=== PATIENT | female | born 1940 | race Caucasian/White ===

== ENCOUNTER → 2023-06-22 08:58 | Outpatient (REF) | payer OTHER, SELFPAY | LOC: HWWDC 08:58 | PROVIDERS: ATTENDING PHYSICIAN Family Medicine | DX: Z12.31 Encounter for screening mammogram for malignant neoplasm of breast (principal) | CPT/HCPCS: 77063; 77067 ==

== ENCOUNTER 2023-07-31 22:05 | Emergency (ER) | payer OTHER, SELFPAY ==
[2023-07-31 22:15] VITALS: BP 174/71
[2023-07-31 22:29] LABS: % Basophils 0.6 % (0-2); % Eosinophils 1.9 % (0-6); % Immature Granulocytes 0.5 % (0-0.5); % Lymphocytes 16.6 % (20.5-51.1); % Monocytes 7.7 % (1.7-9.3); % Neutrophils 72.7 % (42.2-75.2); Absolute Basophils 0.1 10^3/uL (0-0.2); Absolute Eosinophils 0.2 10^3/uL (0-0.7); Absolute Immature Granulocytes 0.1 10^3/uL (0-0.05); Absolute Lymphocytes 1.8 10^3/uL (1.2-3.4); Absolute Monocytes 0.8 10^3/uL (0.1-0.6); Absolute Neutrophils 7.7 10^3/uL (1.4-6.5); Hematocrit 33.1 % (37.0-47.0); Hemoglobin 11.1 g/dL (12.0-16.0); Mean Corp Hgb Conc. 33.5 g/dL (33.0-37.0); Mean Corpuscular Hgb 28.8 pg (27.0-31.0); Mean Platelet Volume 9.8 fL (7.4-10.4); Nucleated Red Blood Cells % 0 %; Platelet Count 258 10^3/uL (130-400); Red Blood Cell Count 3.85 10^6/uL (4.20-5.40); Red Cell Dist. Width 14.3 % (11.5-14.5); White Blood Cell Count 10.5 10^3/uL (4.8-10.8)
[2023-07-31 22:46] LABS: ALT (SGPT) 28 U/L (0-35); AST (SGOT) 27 U/L (14-36); Albumin 4.6 g/dl (3.5-5.0); Alkaline Phosphatase 88 U/L (38-126); Blood Urea Nitrogen 32 mg/dl (7-17); Calcium 9.4 mg/dl (8.4-10.2); Carbon Dioxide 22 mmol/L (22-30); Chloride 109 mmol/L (98-107); Glucose 132 mg/dl (70-99); Potassium 4.5 mmol/L (3.5-5.1); Sodium 138 mmol/L (135-145); Total Bilirubin 0.3 mg/dl (0.2-1.3); Total Protein 7.3 g/dl (6.3-8.2)
[2023-07-31 22:53] LABS: Troponin I < 0.012 ng/ml
[2023-08-01 00:33] VITALS: BP 150/64
[2023-08-01 00:35] VITALS: BP 150/64
[2023-08-01 01:12] LABS: Urine Albumin Negative (Neg - Trace); Urine Bilirubin Negative (Negative); Urine Character Slightly Cloudy (Clear); Urine Color Yellow; Urine Glucose Negative (Negative); Urine Ketone Negative (Negative); Urine Leukocyte 2+ (Negative); Urine Nitrite Negative (Negative); Urine Occult Blood Trace (Negative); Urine Urobilinogen Negative (Neg - 1+)
[2023-08-01 01:36] LABS: Urine Mucus Many; Urine Squamous Cell >30 /LPF (Few); Urine Urothelial Cell >30 /LPF (FEW)
[2023-08-01 01:37] LABS: Urine Bacteria Many (Negative); Urine White Cell >100 /HPF (0-5)
[2023-08-01 01:39] VITALS: BP 172/68
[2023-08-01] MEDS: NSS 1000 IV (02:12)
--- NOTE | 2023-08-01 02:56 | ED.GENMED ---
History of Present Illness
General
Chief Complaint: Fainting Sensation
Source: patient
Exam Limitations: none
Time Seen by Provider: 08/01/23 01:31
Travel History
Have you had any contact with someone who has COVID-19?: No
Do you have any symptoms of coronavirus? Fever > 100 degrees, chills, cough, shortness of breath, sore throat, loss of taste or smell, muscle aches, or headache?: No
History of Present Illness
History of Present Illness:
83-year-old female onset of lightheadedness standing up from a chair. Had some minor chest pressure at that time. Symptoms have resolved. Ongoing left flank pain for days. No fever or chills nausea or vomiting. Currently feels well.
Past History
Past History
ED Past Medical History: HTN, Hypercholesterolemia, NIDDM and Other (UTI, Dizziness, diverticulitis)
ED Past Surgical History: Cardiac (Cardiac catheterization 06/20/2018), Cholecystectomy and Other (Vascular)
Social History
Tobacco: Non-smoker
Alcohol: None
Drug: None
Personal:
Living: alone
Employment: Retired
Family History
Family History: Diabetes and Cancer; Negative Hypertension, Early CAD, CAD or Asthma
Review of Systems
Review of Systems
All Other Systems: Not applicable
Constitutional: Denies fever
Respiratory: Reports no symptoms
ABD/GI: Denies abdominal pain
Phy Exam
Physical Exam
Physical Exam:
GENERAL: Alert and oriented in no apparent distress
EYE: Orbits normal.
NECK: Supple
ENT: Pharynx without erythema
CARDIAC: Regular rate and rhythm without any obvious murmurs.
LUNGS: Clear breath sounds,normal
ABDOMEN: Soft, without focal tenderness or distention. No CVA tenderness
NEUROLOGICAL: Alert and oriented , grossly non-focal
SKIN: Warm and dry, no rash or lesion, no discoloration, skin intact.
MUSCULOSKELETAL: No edema,no deformity.Good color
PSYCH: Normal and appropriate interaction.
Course
Orders/Labs/Results
Orders:
Orders
07/31/23 22:15
Electrocardiogram (*1) Urgent
Reason for Study: Chest Pain
Cardiac Monitoring- Treatment ONCE
EKG- Treatment ONCE
IV Insert/Care/Rem.- Treatment PRN
O2 Therapy [RESP] Urgent
Titrate/Wean O2 to maintain O2 sat greater than (%): 90
Special Instructions: Maintain sats >/=90%
Pulse Ox/spot Check [RESP] Urgent
Quantity: 1
Special Instructions: ON ROOM AIR
07/31/23 22:24
Complete Blood Count/With Diff Urgent
Comprehensive Metabolic Panel Urgent
Troponin I Urgent
08/01/23 00:41
Urinalysis Reflex To Culture Urgent
Date Specimen was Collected: 08/01/23
Time Specimen was Collected: 00:35
Urine Microscopic Reflex Cult Urgent
Urine Culture Urgent
MISSY Source: U
Specimen Description:
Date Specimen was Collected: 08/01/23
Time Specimen was Collected: 00:35
08/01/23 01:39
IV Insert/Care/Rem.- Treatment PRN
0.9% Sodium Chloride 1000 ml [Nss] 1,000 ml IV BOLUS
08/01/23 01:40
CT Abd/pel Without Iv Or Oral Urgent
Comment:
Reason For Exam: Left flank pain
08/01/23 03:07
CefTRIAXone [Rocephin] 1,000 mg IV NOW STA
Abnormal Lab Results
07/31/23 08/01/23
22:24 00:41
RBC 3.85 L 10^6/uL
(4.20-5.40)
Hgb 11.1 L g/dL
(12.0-16.0)
Hct 33.1 L %
(37.0-47.0)
Abs Immat Gran (auto) 0.1 H 10^3/uL
(0-0.05)
Absolute Neuts (auto) 7.7 H 10^3/uL
(1.4-6.5)
Absolute Monos (auto) 0.8 H 10^3/uL
(0.1-0.6)
Lymphocytes % 16.6 L %
(20.5-51.1)
Chloride 109 H mmol/L
(98-107)
BUN 32 H mg/dl
(7-17)
Creatinine 1.3 H mg/dL
(0.6-1.0)
Glucose 132 H mg/dl
(70-99)
Ur Occult Blood Reflex Trace A
(Negative)
Leukocyte Esterase Rfl 2+ A
(Negative)
Urine WBC (Reflex) >100 A /HPF
(0-5)
Urine Bacteria (Reflex) Many A
(Negative)
07/31/23 22:24
07/31/23 22:24
Vital Signs
Initial and Last Documented VS:
Initial Vital Signs
Temp Pulse Resp BP Pulse Ox
98.4 F 72 19 174/71 95
07/31/23 22:15 07/31/23 22:15 07/31/23 22:15 07/31/23 22:15 07/31/23 22:15
Last Documented Vital Signs
Temp Pulse Resp BP Pulse Ox
98.4 F 61 13 172/68 96
07/31/23 22:15 08/01/23 01:45 08/01/23 01:45 08/01/23 01:39 08/01/23 02:02
*Radiology
Radiology exam reviewed: radiology read reviewed (No acute findings. Renal cysts degenerative changes in the back. No hydronephrosis or obstructing stone)
*Pulse Oximetry
Patient hypoxic: no
*EKG
Interpreted by ED Provider?: Yes
Interpretation: normal
Comparison EKG: no changes
Heart Rate: 65
Rate: normal
Rhythm: sinus
[place]: normal axis
Interval: normal interval
QRS Pattern: normal QRS
Ischemia: no ischemia
*[employer] Interpretation
Rate: normal
Interpretation: normal
Heart Rate: 66
Rhythm: sinus
*Critical Care Note
Total Time (30-74mins, 75-104mins- exclusive of procedures): Not Applicable
Update Note
Update Note:
Patient is clinically remained stable. Syncope by history was very orthostatic in nature. No further episodes no arrhythmias. Possible UTI based on urine although admittedly significant squamous cells. Will cover for UTI to follow-up
ED Attending Note
-
Portions of this chart may have been created with voice recognition software.� Occasional wrong word or��sound alike� substitutions may have occurred due to the inherent limitations of voice recognition software.
Discharge Plan
Departure
Patient Disposition: Home (Routine Discharge)
Date of Disposition: 08/01/23
Time of Disposition: 03:08
Patient with high blood pressure during this ER visit?: Yes
Discharge Problem:
Orthostatic near syncope, Possible UTI, Ongoing back pain, Mild renal insufficiency/dehydration
Instructions: Urinary Tract Infection, Adult (DC), Near Fainting (DC), Back Pain, BLOOD PRESSURE
Prescriptions:
New
cefdinir 300 mg capsule
300 mg PO BID 7 Days Qty: 14 0RF
No Action
carvedilol 6.25 MG tablet
6.25 mg PO BID
amlodipine 5 MG tablet
5 mg PO DAILY
metformin 1,000 MG tablet
1,000 mg PO DAILY
Multivitamin Women 50 Plus 1 EACH tablet
1 ea PO DAILY
pantoprazole 40 MG tablet,delayed release (DR/EC)
20 mg PO DAILY
simvastatin 20 MG tablet
20 mg PO MOWEFR
Rx Instructions:
IN THE EVENING
cholecalciferol (vitamin D3) 1,000 UNITS tablet
1,000 units PO DAILY
losartan 100 mg Tablet
100 mg PO DAILY Qty: 0 0RF
Rx Instructions:
hold systolic blood pressure <130
aspirin 325 mg tablet
81 mg PO DAILY
Referrals:
Emmanuel Hall MD [Family Provider] - Follow up in 2-3 days
Interventions
Interventions:
*Risk Screen - Suicide Last Done: 07/31/23 22:15
*General Assessment Last Done: 07/31/23 22:15
*Neglect/Abuse Screening Last Done: 07/31/23 22:15
ED- Fall Risk Assessment Last Done: 08/01/23 01:38
*ED COVID-19 Vaccine History Last Done: 07/31/23 22:15
ED- Cardiac Assessment Last Done: 08/01/23 01:00
ED- Neurological Assessment Last Done: 08/01/23 01:00
Discharge Date and Time
Print Language: BULGARIAN
[2023-08-01] MEDS: ROCEPHIN 1000 MG IV (03:20)
== END 2023-08-01 04:05 | disposition home or self-care (01) ==
LOC: EMR 22:05
PROVIDERS: Student in an Organized Health Care Education/Training Program; EMERGENCY PHYSICIAN Emergency Medicine; FAMILY PHYSICIAN Family Medicine
DX: R55 Syncope and collapse (principal); R10.9 Unspecified abdominal pain; M54.9 Dorsalgia, unspecified; E86.0 Dehydration; N28.9 Disorder of kidney and ureter, unspecified; I10 Essential (primary) hypertension; E11.9 Type 2 diabetes mellitus without complications; E78.00 Pure hypercholesterolemia, unspecified; K57.92 Diverticulitis of intestine, part unspecified, without perforation or abscess without bleeding; Z87.440 Personal history of urinary (tract) infections; Z79.82 Long term (current) use of aspirin; Z90.49 Acquired absence of other specified parts of digestive tract; Z88.6 Allergy status to analgesic agent; Z88.5 Allergy status to narcotic agent; Z88.8 Allergy status to other drugs, medicaments and biological substances
CPT/HCPCS: 99285; 96374; 96361 ×2; 74176; 80053; 81003; 81015; 84484; 85025; 87086; 93005

== ENCOUNTER 2023-12-29 07:56 | Emergency (ER) | payer OTHER, SELFPAY ==
[2023-12-29 07:58] VITALS: BP 187/78
--- NOTE | 2023-12-29 08:50 | ED.GENMED ---
History of Present Illness
General
Chief Complaint: Abdominal Symptoms
Time Seen by Provider: 12/29/23 08:29
History of Present Illness
History of Present Illness:
83-year-old female presents to the emergency department for evaluation of intermittent abdominal distention for the past 3 to 4 days associated with lower abdominal pain this morning. She had a normal bowel movement this morning. No obvious
provoking or palliating factors. Denies any fever, chills, sweats. Has not had much appetite but denies any postprandial worsening of the pain. Prior abdominal surgeries include cholecystectomy
Past History
Past History
ED Past Medical History: HTN, Hypercholesterolemia, NIDDM and Other (UTI, Dizziness, diverticulitis)
ED Past Surgical History: Cardiac (Cardiac catheterization 06/20/2018), Cholecystectomy and Other (Vascular)
Social History
Tobacco: Non-smoker
Alcohol: None
Drug: None
Personal:
Living: alone
Employment: Retired
Family History
Family History: Diabetes and Cancer; Negative Hypertension, Early CAD, CAD or Asthma
Review of Systems
Review of Systems
Allergies reviewed?: Yes
All Other Systems: ROS reviewed and negative except as documented in HPI and ROS
Phy Exam
Physical Exam
Physical Exam:
GEN: Well appearing, NAD, WDWN
HEENT: Oral mucosa moist, no scleral icterus
Cardiac: Regular rate
Lung: No respiratory distress, no tachypnea
Abdomen: Soft, nonTender, Protuberant but not distended
MSK: No gross deformity or injuries
Skin: Good color, no pallor or jaundice, no rashes
Neuro: AO x3, moves all extremities freely
Psych: Calm, cooperative
Course
Orders/Labs/Results
Orders:
Orders
12/29/23 08:49
CT Abd/Pel (IV only)-DH only Urgent
Comment:
Reason For Exam: upper abd pain/distention
12/29/23 09:17
Complete Blood Count/With Diff Urgent
Comprehensive Metabolic Panel Urgent
Lipase Urgent
Urinalysis Reflex To Culture Urgent
Date Specimen was Collected: 12/29/23
Time Specimen was Collected: 09:05
Urine Microscopic Reflex Cult Urgent
Urine Culture Urgent
MISSY Source: U
Specimen Description:
Date Specimen was Collected: 12/29/23
Time Specimen was Collected: 09:05
12/29/23 11:14
Fosfomycin [Monurol] 3 gm PO ONCE ONE
Abnormal Lab Results
12/29/23
09:17
RBC 3.81 L 10^6/uL
(4.20-5.40)
Hgb 11.2 L g/dL
(12.0-16.0)
Hct 33.3 L %
(37.0-47.0)
Carbon Dioxide 19 L mmol/L
(22-30)
BUN 25 H mg/dl
(7-17)
Creatinine 1.2 H mg/dL
(0.6-1.0)
Glucose 126 H mg/dl
(70-99)
Leukocyte Esterase Rfl 2+ A
(Negative)
Urine WBC (Reflex) 21-25 A /HPF
(0-5)
Urine Bacteria (Reflex) Few A
(Negative)
12/29/23 09:17
12/29/23 09:17
Vital Signs
Initial and Last Documented VS:
Initial Vital Signs
Temp Pulse Resp BP Pulse Ox
97.8 F 77 16 187/78 95
12/29/23 07:58 12/29/23 07:58 12/29/23 07:58 12/29/23 07:58 12/29/23 07:58
Last Documented Vital Signs
Temp Pulse Resp BP Pulse Ox
97.8 F 66 18 160/69 96
12/29/23 07:58 12/29/23 11:36 12/29/23 11:36 12/29/23 11:36 12/29/23 11:36
MDM/Problems Addressed
MDM/Problems Addressed:
Imaging is without acute pathology to suggest a source for symptoms. She does have some degree of pyuria and we will treat with a single dose of fosfomycin pending urine culture. Labs are otherwise reassuring. Patient was notified of the abnormal
appearing renal cyst and pancreatic cyst, further imaging may be needed to diagnose these but this is not clinically relevant today
*Critical Care Note
Total Time (30-74mins, 75-104mins- exclusive of procedures): Not Applicable
ED Attending Note
-
Portions of this chart may have been created with voice recognition software.� Occasional wrong word or��sound alike� substitutions may have occurred due to the inherent limitations of voice recognition software.
Discharge Plan
Departure
Patient Disposition: Home (Routine Discharge)
Date of Disposition: 12/29/23
Time of Disposition: 11:15
Patient with high blood pressure during this ER visit?: No
Discharge Problem:
Abdominal pain
Instructions: Abdominal Pain
Prescriptions:
No Action
carvedilol 6.25 MG tablet
6.25 mg PO BID
amlodipine 5 MG tablet
5 mg PO DAILY
metformin 1,000 MG tablet
1,000 mg PO DAILY
Multivitamin Women 50 Plus 1 EACH tablet
1 ea PO DAILY
pantoprazole 40 MG tablet,delayed release (DR/EC)
20 mg PO DAILY
simvastatin 20 MG tablet
20 mg PO MOWEFR
Rx Instructions:
IN THE EVENING
cholecalciferol (vitamin D3) 1,000 UNITS tablet
1,000 units PO DAILY
losartan 100 mg Tablet
100 mg PO DAILY Qty: 0 0RF
Rx Instructions:
hold systolic blood pressure <130
aspirin 325 mg tablet
81 mg PO DAILY
cefdinir 300 mg capsule
300 mg PO BID 7 Days Qty: 14 0RF
Referrals:
Emmanuel Hall MD [Family Provider] -
Activity Restrictions/Additional Instructions:
The cause of your abdominal pain is not clear. Treated you with a dose of antibiotic that should clear up the urinary tract infection if this was the ultimate cause. Incidentally were found to have cysts on your kidneys as well as a cyst on your
pancreas that should be further evaluated with either ultrasound or MRI. 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 None of these are likely to be causing
your abdominal symptoms today
Interventions
Interventions:
*Risk Screen - Suicide Last Done: 12/29/23 11:35
*General Assessment Last Done: 12/29/23 11:35
*Neglect/Abuse Screening Last Done: 12/29/23 11:35
*Nursing Disposition Last Done: 12/29/23 11:35
[id number] Assessment Last Done: 12/29/23 12:01
Discharge Date and Time
Discharge Date/Time: 12/29/23 12:08
Print Language: SLOVENIAN
[2023-12-29 09:27] LABS: % Basophils 0.8 % (0-2); % Immature Granulocytes 0.4 % (0-0.5); % Lymphocytes 20.8 % (20.5-51.1); % Monocytes 7.4 % (1.7-9.3); % Neutrophils 68.6 % (42.2-75.2); Absolute Basophils 0.1 10^3/uL (0-0.2); Absolute Eosinophils 0.2 10^3/uL (0-0.7); Absolute Lymphocytes 1.7 10^3/uL (1.2-3.4); Absolute Monocytes 0.6 10^3/uL (0.1-0.6); Absolute Neutrophils 5.7 10^3/uL (1.4-6.5); Hematocrit 33.3 % (37.0-47.0); Hemoglobin 11.2 g/dL (12.0-16.0); Mean Corp Hgb Conc. 33.6 g/dL (33.0-37.0); Mean Corpuscular Hgb 29.4 pg (27.0-31.0); Mean Corpuscular Volume 87.4 fL (81.0-99.0); Mean Platelet Volume 9.8 fL (7.4-10.4); Nucleated Red Blood Cells % 0 %; Platelet Count 253 10^3/uL (130-400); Red Blood Cell Count 3.81 10^6/uL (4.20-5.40); Red Cell Dist. Width 13.9 % (11.5-14.5); White Blood Cell Count 8.4 10^3/uL (4.8-10.8)
[2023-12-29 09:28] LABS: Urine Albumin Negative (Neg - Trace); Urine Bilirubin Negative (Negative); Urine Character Clear (Clear); Urine Color Yellow; Urine Glucose Negative (Negative); Urine Ketone Negative (Negative); Urine Leukocyte 2+ (Negative); Urine Nitrite Negative (Negative); Urine Occult Blood Negative (Negative); Urine Urobilinogen Negative (Neg - 1+)
[2023-12-29 09:46] LABS: ALT (SGPT) 25 U/L (0-35); AST (SGOT) 25 U/L (14-36); Albumin 4.5 g/dl (3.5-5.0); Alkaline Phosphatase 68 U/L (38-126); Blood Urea Nitrogen 25 mg/dl (7-17); Calcium 9.7 mg/dl (8.4-10.2); Carbon Dioxide 19 mmol/L (22-30); Chloride 106 mmol/L (98-107); Glucose 126 mg/dl (70-99); Lipase 144 U/L (23-300); Potassium 4.3 mmol/L (3.5-5.1); Sodium 141 mmol/L (135-145); Total Bilirubin 0.5 mg/dl (0.2-1.3); Total Protein 6.7 g/dl (6.3-8.2); eGFR 44.91
[2023-12-29 09:52] LABS: Urine Bacteria Few (Negative); Urine Red Blood Cell 0-2 /HPF (0-2); Urine Squamous Cell >30 /LPF (Few); Urine White Cell 21-25 /HPF (0-5)
[2023-12-29] MEDS: MONUROL 3 GM PO (11:32)
[2023-12-29 11:36] VITALS: BP 160/69
== END 2023-12-29 12:08 | disposition home or self-care (01) ==
LOC: EMR 07:56
PROVIDERS: Physician Assistant; EMERGENCY PHYSICIAN Emergency Medicine; FAMILY PHYSICIAN Family Medicine
DX: R10.30 Lower abdominal pain, unspecified (principal); I10 Essential (primary) hypertension; E78.00 Pure hypercholesterolemia, unspecified; E11.9 Type 2 diabetes mellitus without complications; Z82.49 Family history of ischemic heart disease and other diseases of the circulatory system; Z83.3 Family history of diabetes mellitus; Z87.440 Personal history of urinary (tract) infections; Z90.49 Acquired absence of other specified parts of digestive tract
CPT/HCPCS: 99284; 74177; 80053; 81003; 81015; 83690; 85025; 87086; Q9967

== ENCOUNTER 2024-07-28 18:29 | Emergency (ER) | payer OTHER, SELFPAY ==
[2024-07-28 18:32] VITALS: BP 132/73
--- NOTE | 2024-07-28 20:55 | ED.GENMED ---
History of Present Illness
General
Chief Complaint: Blood Pressure Problem
Source: patient
Exam Limitations: none
Time Seen by Provider: 07/28/24 20:34
History of Present Illness
History of Present Illness:
84-year-old female presents with symptoms of not feeling well, tired cough and loose stool. She also checked her blood pressure at home and she was getting elevated readings. She did take all of her blood pressure medication today. There was no
chest pain. No shortness of breath. No fever. No other complaints
Past History
Past History
ED Past Medical History: HTN, Hypercholesterolemia, NIDDM and Other (UTI, Dizziness, diverticulitis)
ED Past Surgical History: Cardiac (Cardiac catheterization 06/20/2018), Cholecystectomy and Other (Vascular)
Social History
Tobacco: Non-smoker
Alcohol: None
Drug: None
Personal:
Living: alone
Employment: Retired
Family History
Family History: Diabetes and Cancer; Negative Hypertension, Early CAD, CAD or Asthma
Phy Exam
Physical Exam
Physical Exam:
General: Well-appearing female no acute respiratory distress
HEENT: Normocephalic atraumatic
Heart: Regular rate and rhythm
Lungs: Clear no wheeze
Extremities: No cyanosis or edema
Skin: Warm no rash
Course
Orders/Labs/Results
Orders:
Orders
07/28/24 20:28
Electrocardiogram (*1) Urgent
Reason for Study: Hypertension, Benign
EKG- Treatment ONCE
07/28/24 20:54
CR Chest - 2 Views Urgent
Comment:
Reason For Exam: cough
07/28/24 21:51
Complete Blood Count/With Diff Urgent
Comprehensive Metabolic Panel Urgent
Troponin I Urgent
Urinalysis Reflex To Culture Urgent
Date Specimen was Collected: 07/28/24
Time Specimen was Collected: 21:46
Urine Microscopic Reflex Cult Urgent
Urine Culture Urgent
MISSY Source: U
Specimen Description:
Date Specimen was Collected: 07/28/24
Time Specimen was Collected: 21:46
Abnormal Lab Results
07/28/24
21:51
RBC 3.86 L 10^6/uL
(4.20-5.40)
Hgb 11.3 L g/dL
(12.0-16.0)
Hct 33.5 L %
(37.0-47.0)
Absolute Monos (auto) 0.8 H 10^3/uL
(0.1-0.6)
BUN 23 H mg/dl
(7-17)
Leukocyte Esterase Rfl 1+ A
(Negative)
Urine Bacteria (Reflex) Few A
(Negative)
07/28/24 21:51
07/28/24 21:51
Vital Signs
Initial and Last Documented VS:
Initial Vital Signs
Temp Pulse Resp BP Pulse Ox
98.3 F 72 20 132/73 97
07/28/24 18:32 07/28/24 18:32 07/28/24 18:32 07/28/24 18:32 07/28/24 18:32
Last Documented Vital Signs
Temp Pulse Resp BP Pulse Ox
98.3 F 70 18 165/66 95
07/28/24 18:32 07/28/24 23:00 07/28/24 23:00 07/28/24 22:53 07/28/24 23:00
MDM/Problems Addressed
Differential Diagnosis Includes:
Patient came for elevated blood pressure readings at home however blood pressure at triage was 132/73. She still notes fatigue loose stool and a cough. Will check labs for electrolyte abnormality or anemia. X-ray pending. Urinalysis pending.
*Critical Care Note
Total Time (30-74mins, 75-104mins- exclusive of procedures): Not Applicable
Update Note
Update Note:
Labs reviewed without significant finding. Chest x-ray showed atelectasis versus pneumonia. Clinically no white count or fever no significant cough. Do not suspect pneumonia. She did just finish a course of antibiotics 2 days ago. Urinalysis
without infection. Blood pressure has remained stable. No indication for admission. Will advise follow-up with family doctor for recheck of blood pressure.
ED Attending Note
-
Portions of this chart may have been created with voice recognition software.� Occasional wrong word or��sound alike� substitutions may have occurred due to the inherent limitations of voice recognition software.
Discharge Plan
Departure
Patient Disposition: Home (Routine Discharge)
Date of Disposition: 07/28/24
Time of Disposition: 23:23
Patient with high blood pressure during this ER visit?: Yes
Discharge Problem:
Fatigue
Instructions: High Blood Pressure (DC)
Prescriptions:
No Action
carvedilol 6.25 MG tablet
6.25 mg PO BID
amlodipine 5 MG tablet
5 mg PO DAILY
metformin 1,000 MG tablet
1,000 mg PO DAILY
Multivitamin Women 50 Plus 1 EACH tablet
1 ea PO DAILY
pantoprazole 40 MG tablet,delayed release (DR/EC)
20 mg PO DAILY
simvastatin 20 MG tablet
20 mg PO MOWEFR
Rx Instructions:
IN THE EVENING
cholecalciferol (vitamin D3) 1,000 UNITS tablet
1,000 units PO DAILY
losartan 100 mg Tablet
100 mg PO DAILY Qty: 0 0RF
Rx Instructions:
hold systolic blood pressure <130
aspirin 325 mg tablet
81 mg PO DAILY
cefdinir 300 mg capsule
300 mg PO BID 7 Days Qty: 14 0RF
Referrals:
NONE,* [Active] -
Activity Restrictions/Additional Instructions:
Please recheck with your doctor this week for your blood pressure. Return if worse otherwise
Interventions
Interventions:
*Risk Screen - Suicide Last Done: 07/28/24 18:34
*General Assessment Last Done: 07/28/24 22:09
*Neglect/Abuse Screening Last Done: 07/28/24 22:09
ED- Cardiac Assessment Last Done: 07/28/24 22:04
ED- Neurological Assessment Last Done: 07/28/24 22:04
ED- Pulmonary Assessment Last Done: 07/28/24 22:04
Discharge Date and Time
Print Language: TELUGU
[2024-07-28 21:59] LABS: % Basophils 0.8 % (0-2); % Eosinophils 2.1 % (0-6); % Immature Granulocytes 0.3 % (0-0.5); % Lymphocytes 24.6 % (20.5-51.1); % Monocytes 9.1 % (1.7-9.3); % Neutrophils 63.1 % (42.2-75.2); Absolute Basophils 0.1 10^3/uL (0-0.2); Absolute Eosinophils 0.2 10^3/uL (0-0.7); Absolute Lymphocytes 2.2 10^3/uL (1.2-3.4); Absolute Monocytes 0.8 10^3/uL (0.1-0.6); Absolute Neutrophils 5.7 10^3/uL (1.4-6.5); Hematocrit 33.5 % (37.0-47.0); Hemoglobin 11.3 g/dL (12.0-16.0); Mean Corp Hgb Conc. 33.7 g/dL (33.0-37.0); Mean Corpuscular Hgb 29.3 pg (27.0-31.0); Mean Corpuscular Volume 86.8 fL (81.0-99.0); Mean Platelet Volume 9.5 fL (7.4-10.4); Nucleated Red Blood Cells % 0 %; Platelet Count 242 10^3/uL (130-400); Red Blood Cell Count 3.86 10^6/uL (4.20-5.40); Red Cell Dist. Width 13.5 % (11.5-14.5)
[2024-07-28 22:00] LABS: Urine Albumin Negative (Neg - Trace); Urine Bilirubin Negative (Negative); Urine Character Clear (Clear); Urine Color Yellow; Urine Glucose Negative (Negative); Urine Ketone Negative (Negative); Urine Leukocyte 1+ (Negative); Urine Nitrite Negative (Negative); Urine Occult Blood Negative (Negative); Urine Urobilinogen Negative (Neg - 1+)
[2024-07-28 22:11] LABS: Urine Red Blood Cell 0-2 /HPF (0-2); Urine Squamous Cell >30 /LPF (Few)
[2024-07-28 22:12] LABS: Urine Bacteria Few (Negative)
[2024-07-28 22:28] LABS: ALT (SGPT) 31 U/L (0-35); AST (SGOT) 29 U/L (14-36); Albumin 4.4 g/dl (3.5-5.0); Alkaline Phosphatase 72 U/L (38-126); Blood Urea Nitrogen 23 mg/dl (7-17); Calcium 10.1 mg/dl (8.4-10.2); Carbon Dioxide 24 mmol/L (22-30); Chloride 104 mmol/L (98-107); Glucose 91 mg/dl (70-99); Potassium 4.2 mmol/L (3.5-5.1); Sodium 138 mmol/L (135-145); Total Bilirubin 0.5 mg/dl (0.2-1.3); eGFR 55.55
[2024-07-28 22:39] LABS: Troponin I < 0.012 ng/ml
[2024-07-28 22:53] VITALS: BP 165/66
[2024-07-28 23:14] VITALS: BP 154/61
== END 2024-07-28 23:38 | disposition home or self-care (01) ==
LOC: EMR 18:29
PROVIDERS: Physician Assistant; EMERGENCY PHYSICIAN Student in an Organized Health Care Education/Training Program; FAMILY PHYSICIAN Family Medicine
DX: R53.83 Other fatigue (principal); I10 Essential (primary) hypertension; E78.00 Pure hypercholesterolemia, unspecified; E11.9 Type 2 diabetes mellitus without complications; Z82.49 Family history of ischemic heart disease and other diseases of the circulatory system; Z83.3 Family history of diabetes mellitus; Z87.440 Personal history of urinary (tract) infections; Z90.49 Acquired absence of other specified parts of digestive tract
CPT/HCPCS: 99283; 71046; 80053; 81003; 81015; 84484; 85025; 87086; 93005

== ENCOUNTER → 2024-09-24 12:46 | Outpatient (REF) | payer OTHER, SELFPAY | LOC: HWWDC 12:46 | PROVIDERS: ATTENDING PHYSICIAN Family Medicine | DX: Z12.31 Encounter for screening mammogram for malignant neoplasm of breast (principal) | CPT/HCPCS: 77063; 77067 ==

== ENCOUNTER → 2025-04-13 10:59 | Outpatient (REF) | payer OTHER, SELFPAY | LOC: MRI 3T 10:59 | PROVIDERS: ATTENDING PHYSICIAN Specialist; FAMILY PHYSICIAN Family Medicine | DX: K86.2 Cyst of pancreas (principal) | CPT/HCPCS: 74183; A9575 ==